=== PATIENT | female | born 1960 | race Caucasian/White ===

== ENCOUNTER 2021-03-29 08:26 | Outpatient (CLI) | payer BC, OTHER | END 2021-03-29 08:27 | disposition home or self-care (01) | LOC: CSHWCC 08:26 | PROVIDERS: ATTEND Nurse Practitioner Family | DX: T81.89XD Other complications of procedures, not elsewhere classified, subsequent encounter (principal); I87.2 Venous insufficiency (chronic) (peripheral); R60.0 Localized edema; L03.115 Cellulitis of right lower limb; M06.4 Inflammatory polyarthropathy; G89.4 Chronic pain syndrome; E66.3 Overweight | CPT/HCPCS: 11042; 97605; 99203; G0463 ==

== ENCOUNTER 2021-04-01 10:31 | Outpatient (CLI) | payer BC | END 2021-04-01 10:32 | disposition home or self-care (01) | LOC: CSHWCC 10:31 | PROVIDERS: ATTEND Nurse Practitioner Family | DX: T81.89XD Other complications of procedures, not elsewhere classified, subsequent encounter (principal); I87.2 Venous insufficiency (chronic) (peripheral); L03.115 Cellulitis of right lower limb; R60.0 Localized edema; M06.4 Inflammatory polyarthropathy; G89.4 Chronic pain syndrome; E66.3 Overweight ==

== ENCOUNTER 2021-04-05 07:36 | Outpatient (CLI) | payer BC | END 2021-04-05 07:37 | disposition home or self-care (01) | LOC: CSHWCC 07:36 | PROVIDERS: ATTEND Nurse Practitioner Family | DX: T81.89XD Other complications of procedures, not elsewhere classified, subsequent encounter (principal); I87.2 Venous insufficiency (chronic) (peripheral); L03.115 Cellulitis of right lower limb; R60.0 Localized edema; G89.4 Chronic pain syndrome; M06.4 Inflammatory polyarthropathy; E66.3 Overweight | CPT/HCPCS: 11042; 97605 ==

== ENCOUNTER 2021-04-08 11:06 | Outpatient (CLI) | payer BC | END 2021-04-08 11:07 | disposition home or self-care (01) | LOC: CSHWCC 11:06 | PROVIDERS: ATTEND Nurse Practitioner Family | DX: T81.89XA Other complications of procedures, not elsewhere classified, initial encounter (principal); E66.3 Overweight; G89.4 Chronic pain syndrome; I87.2 Venous insufficiency (chronic) (peripheral); L03.115 Cellulitis of right lower limb; M06.4 Inflammatory polyarthropathy; R60.0 Localized edema | CPT/HCPCS: 29581; 97605 ==

== ENCOUNTER 2021-04-12 08:20 | Outpatient (CLI) | payer BC | END 2021-04-12 08:21 | disposition home or self-care (01) | LOC: CSHWCC 08:20 | PROVIDERS: ATTEND Nurse Practitioner Family | DX: T81.89XD Other complications of procedures, not elsewhere classified, subsequent encounter (principal); I87.2 Venous insufficiency (chronic) (peripheral); L03.115 Cellulitis of right lower limb; E66.3 Overweight; G89.4 Chronic pain syndrome; M06.4 Inflammatory polyarthropathy; R60.0 Localized edema | CPT/HCPCS: 97605; 99213; G0463 ==

== ENCOUNTER 2021-04-15 08:29 | Outpatient (CLI) | payer BC | END 2021-04-15 08:30 | disposition home or self-care (01) | LOC: CSHWCC 08:29 | PROVIDERS: ATTEND Nurse Practitioner Family | DX: T81.89XD Other complications of procedures, not elsewhere classified, subsequent encounter (principal); I87.2 Venous insufficiency (chronic) (peripheral); L03.115 Cellulitis of right lower limb; R60.0 Localized edema; M06.4 Inflammatory polyarthropathy; G89.4 Chronic pain syndrome; E66.3 Overweight ==

== ENCOUNTER 2021-04-19 08:14 | Outpatient (CLI) | payer BC | END 2021-04-19 08:15 | disposition home or self-care (01) | LOC: CSHWCC 08:14 | PROVIDERS: ATTEND Nurse Practitioner Family | DX: T81.89XD Other complications of procedures, not elsewhere classified, subsequent encounter (principal); I87.2 Venous insufficiency (chronic) (peripheral); L03.115 Cellulitis of right lower limb; R60.0 Localized edema; M06.4 Inflammatory polyarthropathy; G89.4 Chronic pain syndrome; E66.3 Overweight | CPT/HCPCS: 29581; 97605; 99213; G0463 ==

== ENCOUNTER 2021-04-23 07:50 | Outpatient (CLI) | payer BC | END 2021-04-23 07:51 | disposition home or self-care (01) | LOC: CSHWCC 07:50 | PROVIDERS: ATTEND Nurse Practitioner Family | DX: T81.89XD Other complications of procedures, not elsewhere classified, subsequent encounter (principal); I87.2 Venous insufficiency (chronic) (peripheral); L03.115 Cellulitis of right lower limb; R60.0 Localized edema; M06.4 Inflammatory polyarthropathy; G89.4 Chronic pain syndrome; E66.3 Overweight ==

== ENCOUNTER 2021-04-26 11:13 | Outpatient (CLI) | payer BC | END 2021-04-26 11:14 | disposition home or self-care (01) | LOC: CSHWCC 11:13 | PROVIDERS: ATTEND Nurse Practitioner Family | DX: T81.89XD Other complications of procedures, not elsewhere classified, subsequent encounter (principal); I87.2 Venous insufficiency (chronic) (peripheral); L03.115 Cellulitis of right lower limb; E66.3 Overweight; G89.4 Chronic pain syndrome; M06.4 Inflammatory polyarthropathy; R60.0 Localized edema | CPT/HCPCS: 29581; 97605 ==

== ENCOUNTER 2021-04-29 08:11 | Outpatient (CLI) | payer BC | END 2021-04-29 08:12 | disposition home or self-care (01) | LOC: CSHWCC 08:11 | PROVIDERS: ATTEND Nurse Practitioner Family | DX: T81.89XD Other complications of procedures, not elsewhere classified, subsequent encounter (principal); R60.0 Localized edema; E66.3 Overweight; G89.4 Chronic pain syndrome; I87.2 Venous insufficiency (chronic) (peripheral); L03.115 Cellulitis of right lower limb; M06.4 Inflammatory polyarthropathy | CPT/HCPCS: 29581; 97605 ==

== ENCOUNTER 2021-05-03 08:31 | Outpatient (CLI) | payer BC | END 2021-05-03 08:32 | disposition home or self-care (01) | LOC: CSHWCC 08:31 | PROVIDERS: ATTEND Nurse Practitioner Family | DX: T81.89XD Other complications of procedures, not elsewhere classified, subsequent encounter (principal); E66.3 Overweight; G89.4 Chronic pain syndrome; I87.2 Venous insufficiency (chronic) (peripheral); L03.115 Cellulitis of right lower limb; M06.4 Inflammatory polyarthropathy; R60.0 Localized edema ==

== ENCOUNTER 2021-05-06 08:57 | Outpatient (CLI) | payer BC | END 2021-05-06 08:58 | disposition home or self-care (01) | LOC: CSHWCC 08:57 | PROVIDERS: ATTEND Nurse Practitioner Family | DX: T81.89XD Other complications of procedures, not elsewhere classified, subsequent encounter (principal); I87.2 Venous insufficiency (chronic) (peripheral); E66.3 Overweight; G89.4 Chronic pain syndrome; L03.115 Cellulitis of right lower limb; M06.4 Inflammatory polyarthropathy; R60.0 Localized edema | CPT/HCPCS: 99213; G0463 ==

== ENCOUNTER 2021-05-10 10:02 | Outpatient (CLI) | payer BC | END 2021-05-10 10:03 | disposition home or self-care (01) | LOC: CSHWCC 10:02 | PROVIDERS: ATTEND Nurse Practitioner Family | DX: T81.89XD Other complications of procedures, not elsewhere classified, subsequent encounter (principal); I87.2 Venous insufficiency (chronic) (peripheral); L03.115 Cellulitis of right lower limb; R60.0 Localized edema; M06.4 Inflammatory polyarthropathy; G89.4 Chronic pain syndrome; E66.3 Overweight | CPT/HCPCS: 99213; G0463 ==

== ENCOUNTER 2021-05-18 14:35 | Outpatient (CLI) | payer BC | END 2021-05-18 14:36 | disposition home or self-care (01) | LOC: CSHWCC 14:35 | PROVIDERS: ATTEND Nurse Practitioner Family | DX: T81.89XD Other complications of procedures, not elsewhere classified, subsequent encounter (principal); R60.0 Localized edema; L03.115 Cellulitis of right lower limb; E66.3 Overweight; G89.4 Chronic pain syndrome; I87.2 Venous insufficiency (chronic) (peripheral); M06.4 Inflammatory polyarthropathy | CPT/HCPCS: 99213; G0463 ==

== ENCOUNTER 2021-06-01 10:54 | Outpatient (CLI) | payer BC | END 2021-06-01 10:55 | disposition home or self-care (01) | LOC: CSHWCC 10:54 | PROVIDERS: ATTEND Nurse Practitioner Family | DX: T81.89XD Other complications of procedures, not elsewhere classified, subsequent encounter (principal); I87.2 Venous insufficiency (chronic) (peripheral); L03.115 Cellulitis of right lower limb; R60.0 Localized edema; M06.4 Inflammatory polyarthropathy; G89.4 Chronic pain syndrome; E66.3 Overweight ==

== ENCOUNTER 2021-06-24 15:13 | Outpatient (CLI) | payer BC | END 2021-06-24 15:14 | disposition home or self-care (01) | LOC: CSHWCC 15:13 | PROVIDERS: ATTEND Nurse Practitioner Family | DX: R60.0 Localized edema (principal) ==

== ENCOUNTER 2022-09-21 11:59 | Outpatient (CLI) | payer BC | END 2022-09-21 12:00 | disposition home or self-care (01) | LOC: CSHRAD 11:59 | PROVIDERS: ATTEND Orthopaedic Surgery | DX: M54.50 Low back pain, unspecified (principal); Z98.890 Other specified postprocedural states; M47.816 Spondylosis without myelopathy or radiculopathy, lumbar region | CPT/HCPCS: 72100 ==

== ENCOUNTER 2024-01-15 10:12 | Emergency (ER) | payer BC ==
[2024-01-15 11:12] LABS: Bilirubin Neg (Negative); Blood, Urine Negative (Negative); Clarity Clear (Clear); Glucose, Urine (Dipstick) Normal (Negative); Ketone, Urine Negative (Negative); Leukocyte Negative (Negative); Nitrite Negative (Negative); Protein, Urine (Dipstick) 15 mg/dl (Neg-Trace); Specific Gravity, Urine 1.005 (1.005-1.030); Urobilinogen Normal mg/dL (Less than 2)
[2024-01-15 11:13] LABS: #Basophils 0.02 10x3/uL (0.0-0.2); #Monocytes 0.64 10x3/uL (0.0-1.1); #Neutrophils 9.91 10x3/uL (1.5-8.4); %Basophils 0.2 % (0.0-2.0); %Lymphocytes 11.6 % (18.0-47.0); %Monocytes 5.3 % (0.0-10.0); %Neutrophils 82.6 % (40.0-75.0); Hematocrit 37.8 % (34.9-44.5); Hemoglobin 11.5 g/dL (12.0-15.5); Mean Corpuscular HGB CONC 30.4 g/dL (32.0-36.0); Mean Corpuscular Hemoglobin 24.5 pg (27.0-33.0); Mean Corpuscular Volume 80.6 fL (81.6-98.3); Mean Platelet Volume 9.9 fL (7.4-10.4); Platelet Count 257 10x3/uL (150-450); RBC Distribution Width 15.1 % (11.5-14.5); Red Blood Cell (RBC) Count 4.69 10x6/uL (3.90-5.03)
[2024-01-15] MEDS ORDERED: Iopamidol 370 76% 100 ML VIAL ONE (11:21)
[2024-01-15] MEDS ORDERED: methylPREDNISolone Sod Succ 40 MG VIAL ONE (11:25)
[2024-01-15] MEDS ORDERED: diphenhydrAMINE 50 MG/ML VIAL ONE (11:25)
[2024-01-15] MEDS ORDERED: Famotidine/PF 20 mg/2ml Vial ONE (11:26)
[2024-01-15 11:28] LABS: ALT (SGPT) Less than 7 U/L (8-55); AST (SGOT) 11 U/L (5-34); Albumin 3.9 g/dL (3.4-4.8); Alkaline Phosphatase 106 U/L (40-110); Anion Gap 12 mmol/L (10-20); BUN (Urea Nitrogen) 17 mg/dL (9.8-20.1); Bilirubin, Total 0.2 mg/dL (0.2-1.2); Calc. Creatinine Clearance 0 mL/min (70-130); Calcium 9.8 mg/dL (7.8-10.44); Carbon Dioxide 29 mmol/L (23-31); Chloride 105 mmol/L (98-107); Estimated GFR 65; Globulin 2.8 g/dL (2.4-3.5); Glucose 78 mg/dL (80-115); Lipase 16 U/L (8-78); Protein, Total 6.7 g/dL (5.8-8.1); Sodium 142 mmol/L (136-145)
[2024-01-15 11:31] LABS: Troponin I 0.012 ng/mL (< 0.028)
[2024-01-15 11:53] LABS: Bacteria/HPF Rare-Few HPF (None Seen); CAUTI Indications for Culture Dysuria,urgency,freq; RBC/HPF 0-3 HPF (0-3); WBC/HPF 0-3 HPF (0-3)
[2024-01-15 11:54] LABS: Urine Culture Reflex No No
== END 2024-01-15 14:10 | disposition home or self-care (01) ==
LOC: CSHERS 10:12
DX: R11.2 Nausea with vomiting, unspecified (principal); K59.00 Constipation, unspecified; Z87.891 Personal history of nicotine dependence
CPT/HCPCS: 74177; 80053; 81001; 83690; 84484; 85025; 93005; 96374; 96375; J1200; J2919; J3490; Q9967